=== PATIENT | male | born 1995 | race Caucasian/White ===

== ENCOUNTER 2019-05-06 06:51 | Emergency (ER) | payer MEDICAID ==
[2019-05-06] MEDS ORDERED: Albuterol/Ipratropium Neb 3 ML AERS HHN ONE ×2 (07:07→07:16)
--- NOTE | 2019-05-06 07:13 | ED Physician Chart ---
ED Chief Complaint/HPI - Patient Information Date Seen:: 05/06/19 Time Seen:: 07:00 Chief Complaint:: chest pain History of Present Illness:: At about midnight patient developed pain in the left supraclavicular area radiating to the substernal area. Patient slightly more uncomfortable with deep breathing. Patient has mild shortness of breath. No recent upper respiratory tract infection and cough. Patient in the past has used an over-the -counter inhaler for occasional shortness of breath or wheezing. No personal or family history of asthma or environmental allergies. Allergies:: Allergies Allergy/AdvReac Type Severity Reaction Status Date / Time No Known Allergies Allergy Verified 05/06/19 06:55 Vitals:: Vital Signs - 8 hr 05/06/19 06:51 Temp 98.0 F HR 80 RR 18 BP 134/85 O2 Sat % 98 Historian:: Patient Review:: Nurse's Note Reviewed ED Review of Systems - Review of Systems General/Constitutional: No fever, No chills Skin: No skin lesions Head: No headache ENT: No earache Neck: No neck pain, No swelling Cardio Vascular: Chest pain Pulmonary: SOB GI: No nausea, No vomiting, No diarrhea G/U: No dysuria Musculoskeletal: No bone or joint pain Endocrine: No polyuria, No polydipsia Psychiatric: No prior psych history Hematopoietic: No bruising Allergic/Immuno: No urticaria Neurological: No syncope ED Past Medical History - Past Medical History Past Medical History: No significant medical hx Family History: None Social History: Non Smoker, Alcohol, Other (drinks a few beers on the weekend) Surgical History: None Psychiatricy History: None Medication: Reviewed Family Medical History - Family Member Mother History Unknown: Yes ED Physical Exam - Physical Examination General/Constitutional: Awake, Well-developed, well-nourished, Alert, No distress Head: Atraumatic Eyes: Lids, conjuctiva normal, PERRL Skin: Nl inspection, No rash, No skin lesions, No ecchymosis, Well hydrated, No lymphadenopathy ENMT: External ears, nose nl, TM canals nl, Nasal exam nl, Lips, teeth, gums nl , Tonsils nl Neck: No nuchal rigidity Respiratory: Nl effort/Exclusion, Clear to Auscultation Other Respiratory comments:: Sounds decreased; expiratory sounds decreased more than inspiratory Cardio Vascular: RRR GI: No tenderness/rebounding/guarding, No organomegaly, No hernia, Normal BS's, Nondistended, No mass/bruits : No CVA tenderness Extremities: Normal digits & nails Neuro/Psych: No focal deficits Misc: Normal back ED Labs/Radiology/EKG Results - EKG Interpretations Rate & Rhythm: normal sinus rhythm with a rate of 73 [place]: normal Comments:: Concave ST segment elevation in leads V2 and V3 suggestive of early repolarization ED Assessment - Assessment General Assessment: Patient felt better after the albuterol/Atrovent breathing treatment. Auscultation of the chest after the breathing treatment was unchanged. Patient' s chest pain is most likely secondary to reactive airway disease. Troponin was negative. EKG shows early repolarization; otherwise negative. I gave patient instructions on how to properly use an albuterol metered-dose inhaler. ED Septic Shock - <6hrs of presentation: Vital Signs: Vital Signs - 8 hr 05/06/19 06:51 Temp 98.0 F HR 80 RR 18 BP 134/85 O2 Sat % 98 ED Reassessment (Disposition) - Reassessment Reassessment Condition:: Improved - Diagnosis Diagnosis:: Atypical chest pain - Aftercare/Follow up Instructions Aftercare/Follow-Up Instructions:: Refer to Discharge Instructions Medication Prescribed:: Albuterol metered-dose inhaler to use 2 puffs every 4 hours as necessary for shortness of breath - Patient Disposition Discharge/Transfer:: Home Condition at Disposition:: Stable, Improved
== END 2019-05-06 08:15 | disposition home or self-care (01) ==
LOC: ER 06:51
DX: R07.89 Other chest pain (principal); R06.02 Shortness of breath
CPT/HCPCS: 36415-UA; 84484-TC; 93005; 94640